=== PATIENT | female | born 1930 | race Caucasian/White ===

== ENCOUNTER 2018-01-06 03:39 | Inpatient (IN) | payer OTHER, MEDICARE ==
[~2018-01-06] VITALS: Ht 144.8 cm; Wt 78.9 kg
[~2018-01-06 03:39] MED LIST: ADVIL200 M2 PO; ASPIRIN EC81 M1 PO; BACTROBAN NASAL1 GM NASB; HYDROCHLOROTHIA25 M1 PO; TENORMIN50 M1 PO; VITAMIN D1000 UNIT PO; ZOCOR80 M1 PO
--- NOTE | 2018-01-06 09:47 | Admission Core Measures ---
Acute Coronary Syndrome (CM) ACS Core Measures Acute Coronary Syndrome Diagnosis No Congestive Heart Failure (NEW) CHF Core Measures Congestive Heart Failure Diagnosis No Cerebrovascular Accident (NEW) CVA Core Measures CVA/TIA Diagnosis No Venous Thromboembolism VTE Core Roge (View Protocol) VTE Risk Factors Surgery No Mechanical VTE Prophylaxis d/t N/A MechProphylax Ordered No VTE Pharm Prophylaxis d/t NA PharmProphylax ordered Problem List As ranked by this Provider includes Assessment & Plan 1. Unilateral primary osteoarthritis, left hip HOME MEDS Home Med List Aspirin (Ecotrin*) 81 MG TABLET.DR 1 TAB PO DAILY HEART/BLOOD (Reported) Atenolol (Tenormin) 50 MG TABLET 1 TAB PO BID BP (Reported) Cholecalciferol (Vitamin D3) (Vitamin D) 1,000 UNIT TABLET 1 TAB PO DAILY SUPPLEMENT (Reported) Hydrochlorothiazide 25 MG TABLET 1 TAB PO DAILY BP (Reported) Ibuprofen (Advil) 200 MG TABLET 3 TAB PO DAILY PRN PAIN (Reported) Mupirocin Calcium (Bactroban Nasal) 2 % OINT...G. 1 GM NASB TID POSITIVE NASAL SWAB (Reported) Simvastatin (SIMVASTATIN*) 80 MG TABLET 1 TAB PO QPM CHOLESTEROL (Reported)
[2018-01-06] MEDS ORDERED: ASPIRIN EC325 M2 PO (09:52)
[2018-01-06] MEDS ORDERED: DILAUDID2 M1 PO (09:52)
[2018-01-06] MEDS ORDERED: MIRALAX17 G1 PO (09:52)
[2018-01-06] MEDS ORDERED: COLACE100 M1 PO (09:52)
[2018-01-06] MEDS ORDERED: PRILOSEC OTC20 M1 PO (09:53)
--- NOTE | 2018-01-06 09:57 | Patient Discharge Instructions ---
Discharge Instructions General Discharge Information You were seen/treated for: Left hip pain related to unilateral primary osteoarthritis You had these procedures: Left total hip arthroplasty Watch for these problems: Increasing pain despite the use of pain medication Increasing redness, warmth or swelling Drainage of any type from incision Inability to bear weight on operative leg Persistent nausea and vomiting Fever greater than 101.5 degrees Do not soak the wound: Yes No bath, but you may shower: Yes Other wound care: Please keep wound clean and dry. No ointments or lotions of any type on or near incision at any time. No exceptions. Your dressing will be changed by your nurse on the second day after your surgery. Daily dry dressing changes are recommended each day thereafter. Do not soak your wound in a bath at any time until otherwise indicated by your surgeon. You may shower, please dry wound immediately after shower with a clean towel. Special Instructions: Aspirin: You are taking this medication to help prevent blood clot formation. Please take with food to protect your stomach lining. Please take as directed. Constipation: Pain medication can cause constipation. Dr. Lopez has recommended that you take Colace and miralax each day. You may discontinue this medication if you develop loose stool or diarrhea. If you wish to continue this medication, it is available over the counter. If you are unable to move your bowels after several days, if you are unable to pass gas and are developing bloating, nausea, or vomiting as a result, please contact your doctor. Diet Continue normal diet: Yes Recommended Diet: Regular Activity Full Activity/No Limits: No Activity Self Limited: Yes Pounds, do NOT lift more than: 10 Acute Coronary Syndrome Inclusion Criteria At DC or during hospital stay patient has or had the following: ACS DIAGNOSIS No Discharge Core Measures Meds if any: Prescribed or Continued at Discharge Meds if any: NOT Prescribed or Continued at Discharge Congestive Heart Failure Inclusion Criteria At DC or during hospital stay patient has or had the following: CHF DIAGNOSIS No Discharge Core Measures Meds if any: Prescribed or Continued at Discharge Meds if any: NOT Prescribed or Continued at Discharge Cerebrovascular accident Inclusion Criteria At DC or during hospital stay patient has or had the following: CVA/TIA Diagnosis No Discharge Core Measures Meds if any: Prescribed or Continued at Discharge Meds if any: NOT Prescribed or Continued at Discharge Venous thromboembolism Inclusion Criteria VTE Diagnosis No VTE Type NONE VTE Confirmed by (Test) NONE Discharge Core Measures - Per Current guidelines, there needs to be overlap - treatment for the first 5 days of Warfarin therapy. - If discharged on Warfarin prior to 5 days of - overlap therapy, the patient will need to be - assessed for post discharge needs including - *Post discharge parental anticoagulation - *Warfarin and/or parental anticoagulation education - *Follow up date to check INR post discharge At least 5 days overlap therapy as Inpatient No Meds if any: Prescribed or Continued at Discharge Note: Overlap Therapy is Warfarin and Anticoagulant Meds if any: NOT Prescribed or Continued at Discharge
--- NOTE | 2018-01-06 09:58 | Surgical Discharge Summary ---
Visit Information Visit Dates Admission Date: 01/06/18 Discharge Date: 01/09/18 History of Present Illness Chief Complaint: Left hip pain related to unilateral primary osteoarthritis Medical History Isolation History: Standard Surgical History Pertinent Surgical History: non-contributory Review of Systems: See H&P Hospital Course Course Attending Physician: Ananth Lopez MD Primary Care Physician: Freddie Lazar MD Hospital Course: Patient was admitted to the hospital for an elective total joint replacement. The procedure was tolerated well and patient was transferred to a general surgical floor. Diet was advanced and tolerated, and the patient voided spontaneously. The patient was evaluated and treated by physical therapy. At the time of hospital discharge, the vital signs were stable, neurovascular status was intact, and pain was controlled with the use of oral pain medications. Allergies: Coded Allergies: Cephalosporins (RASH 01/03/18) Sulfa (Sulfonamide Antibiotics) (RASH 01/03/18) amoxicillin (SWELLING, RASH, HIVES, WELTS 01/03/18) azithromycin (RASH 01/03/18) clindamycin (DIARRHEA 01/03/18) erythromycin base (RASH 01/03/18) latex (ITCH AND RASH 01/03/18) propoxyphene (From DARVON) (RASH 01/03/18) silver sulfadiazine (From SILVADENE) (RASH 01/03/18) Disposition Summary Disposition Principal Diagnosis: Left hip unilateral primary osteorathritis Additional Diagnosis: None Discharge Disposition: home health services Discharge Instructions General Discharge Information Code Status: Full Code Patient's Diet: Reg, advance as tolerated Patient's Activity: WBAT Follow-Up Instructions/Appts: Follow up with Dr. Lopez in 6 weeks from date of surgery. Please call his office to arrange and/or confirm this appointment. Medications at Discharge Discharge Medications: Stop taking the following medications: Aspirin (Ecotrin*) 81 MG TABLET.DR ORAL DAILY Ibuprofen (Advil) 200 MG TABLET ORAL DAILY as needed for PAIN Mupirocin Calcium (Bactroban Nasal) 2 % OINT...G. Both sides of nose THREE TIMES DAILY Continue taking these medications: Atenolol (Tenormin) 50 MG TABLET 1 Tablet ORAL TWICE DAILY Hydrochlorothiazide (Hydrochlorothiazide) 25 MG TABLET 1 Tablet ORAL DAILY Simvastatin (SIMVASTATIN*) 80 MG TABLET 1 Tablet ORAL Every night Cholecalciferol (Vitamin D3) (Vitamin D) 1,000 UNIT TABLET 1 Tablet ORAL DAILY Start taking the following new medications: Aspirin (Ecotrin*) 325 MG TABLET. 1 Tablet ORAL TWICE DAILY Qty = 60 No Refills Docusate Sodium (Colace) 100 MG CAPSULE 1 Capsule ORAL TWICE DAILY Qty = 14 No Refills Instructions: DISCONTINUE USE IF YOU DEVELOP LOOSE STOOL OR DIARRHEA Polyethylene Glycol 3350 (Miralax) 17 GRAM POWD.PACK 1 Packet ORAL DAILY Qty = 7 No Refills Instructions: dissolve in water, DISCONTINUE USE IF YOU DEVELOP LOOSE STOOL OR DIARRHEA Hydromorphone HCl (Dilaudid) 2 MG TABLET 1-2 Tablet ORAL EVERY 4-6 HOURS NEEDED as needed for PAIN Qty = 36 No Refills Omeprazole Magnesium (Prilosec Otc) 20 MG TABLET. 1 Tablet ORAL DAILY Qty = 30 No Refills
--- NOTE | 2018-01-06 10:30 | RADIOLOGY REPORT ---
EXAMINATION: XR HIP, LEFT CLINICAL INFORMATION: Status post left total hip replacement. COMPARISON: There are no prior studies for comparison. TECHNIQUE: Frontal and crosstable lateral views of the left hip. of the left hip. FINDINGS/IMPRESSION: A bipolar left hip prosthesis is present which is near-anatomic alignment. Tubing from a surgical drain in the operative region is noted.
[2018-01-06 12:00] VITALS: BP 154/70
--- NOTE | 2018-01-06 12:36 | Operative Report ---
Operative/Inv Procedure Report Surgery Date: 01/06/18 Name of Procedure: Right total hip replacement Pre-Operative Diagnosis: Primary right hip DJD Post-Operative Diagnosis: Same Estimated Blood Loss: 250 Surgeon/Music Adapter: John ABDI,Ananth Solomon Anesthesia: block Operative/Procedure Note Note: Description of Procedure: The patient was taken to the operating room and positively identified. After induction of spinal anesthesia and administration of appropriate pre-operative antibiotics, the patient was positioned supine on the operating room table and all bony prominences were well padded. After performing a surgical timeout, the right lower extremity was prepped and draped in the usual sterile fashion. A direct anterior approach was made to the right hip. The incision was carried sharply through superficial soft tissues to the level of the fascia. Meticulous hemostasis was maintained with Bovie electocautery. The fascia over the tensor fascia kristyn muscle was opened sharply and the interval between the TFL and the sartorius was entered bluntly taking care to stay lateral to the lateral femoral cutaneous nerve. Retractors were placed around the femoral neck and the pericapsular fat was identified. The ascending branches of the lateral femoral circumflex vessels were identified and carefully coagulated. The pericapsular fat and anterior capsule were then resected. A napkin ring osteotomy was performed and the femoral head was removed without difficulty. Attention was then turned to the acetabulum. After appropriate placement of retractors, the acetabulum was exposed. Soft tissue was cleaned from the acetabular margin and notch. Overhanging osteophytes were removed and the teardrop was exposed. The acetabulum was then sequentially reamed to accept a 52 mm Mani Tritanium hemispherical solid shell. This was impacted into place in the appropriate position and fitted with a 36 mm Trident X3 zero degree polyethylene insert. Attention was then turned to the femur. After performing the appropriate ligament releases, the proximal femur was exposed. It was then sequentially broached to accept a size 6 Mani Accolade II stem. This was trialed for leg length and stability. The trial component was removed and the final component was impacted into place. The trunnion was carefully cleaned and fit with a 36 mm, +0 Biolox delta ceramic femoral head. The hip was reduced and put through a full range of motion and found to be stable. The articular space was then irrigated with sterile saline. The periarticular soft tissues were infilitrated with Marcaine. The fascial layer was closed with interrupted #1 vicryl suture and the skin was re-approximated with interrupted 2 -0 vicryl. The skin was closed with a running 3-0 V-Lock suture. Steri-strips and a sterile dressing were applied. The patient was awakened and taken to the recovery room in satisfactory condition.
[2018-01-06 14:29] VITALS: BP 140/71
--- NOTE | 2018-01-06 14:48 | PN- Orthopedic ---
Subjective Subjective: poc s/p left justin w/hemovac drain sitting up in chair no major complaints at this time denies cp, sob, no n+v with diet Objective Vital Signs and I&Os Vital Signs Date Time Temp Pulse Resp B/P B/P Pulse O2 O2 Flow FiO2 Mean Ox Delivery Rate 01/06 1429 98.7 62 18 140/71 92 01/06 1247 95.8 01/06 1200 93.7 57 20 154/70 94 Room Air Intake & Output 01/06 1600 01/06 0801/06 0000 01/05 1600 01/05 0000 Intake Total Output Total Balance Patient 174 lb Weight Physical Exam: cv: rrr lungs; clear abd: soft, +bs ext: drsg dry, thigh soft bilat le distal cms intact hemovac drain with sanguinous drainage Assessment/Plan Assessment/Plan ortho stable plan dtv @1999 may be oob wbat left le ice to left hip titrate pain meds 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
[2018-01-06 20:24] VITALS: BP 110/58
[2018-01-06 22:17] VITALS: BP 120/60
[2018-01-07 02:09] VITALS: BP 110/60
[2018-01-07 06:00] VITALS: BP 120/60
[2018-01-07 09:03] LABS: ABSOLUTE BASOPHIL COUNT 0 /CUMM (0.0-0.2); ABSOLUTE EOSINOPHIL COUNT 0.2 /CUMM (0.0-0.7); ABSOLUTE GRANULOCYTE CT 7.8 /CUMM (1.4-6.5); ABSOLUTE LYMPH COUNT 0.7 /CUMM (1.2-3.4); ABSOLUTE MONOCYTE COUNT 0.9 /CUMM (0.10-0.60); BASOPHIL % 0.3 % (0.0-2.0); EOSINOPHIL % 2.1 % (0-5); GRANULOCYTE % 80.3 % (42.2-75.2); HEMATOCRIT 29.2 % (37-47); MEAN CORPUSCULAR HGB 30.1 PG (27.0-31.0); MEAN CORPUSCULAR VOLUME 91.2 FL (81.0-99.0); MEAN PLATELET VOLUME 9.2 FL (7.4-10.4); PLATELET COUNT 175 /CUMM (130-400); RBC DISTRIBUTION WIDTH 13.4 % (11.5-14.5); RED BLOOD CELL CT 3.21 /CUMM (4.20-5.40); WHITE BLOOD CELL COUNT 9.7 /CUMM (4.8-10.8)
[2018-01-07 10:10] VITALS: BP 118/60
--- NOTE | 2018-01-07 12:37 | PN- Orthopedic ---
Subjective Subjective: pt sitting in chair. tolerating reg diet. +flatus, no BM yet. ambulating with PT. pt was very concerned when she noticed some blood leaking down her leg that came from under the drain tubing, she was worried about infection. pain managed Objective Vital Signs and I&Os Vital Signs Date Time Temp Pulse Resp B/P B/P Pulse O2 O2 Flow FiO2 Mean Ox Delivery Rate 01/07 1017 60 118/60 01/07 1010 97.7 66 20 118/60 01/07 0600 98.2 68 18 120/60 95 08 0209 97.9 64 18 110/60 93 Room Air 01/06 2224 65 120/60 01/06 2217 97.6 65 18 120/60 92 Room Air 01/06 2024 97.5 65 18 110/58 94 Room Air 01/06 1429 97.3 62 18 140/71 92 01/06 1247 95.8 Intake & Output 01/07 1600 01/07 0800 01/07 0000 01/06 1600 01/06 0800 01/06 0000 Intake Total 720 840 350 Output Total 550 880 470 75 Balance -550 -160 370 275 Intake, IV 600 600 150 Intake, Oral 120 240 200 Output, 80 120 75 Drainage Output, Urine 550 800 350 Patient 174 lb Weight Weight Standing Scale Measurement Method Physical Exam: gen-NAD resp-clear cardio-RRR abd ND, soft, NT ext- left hip soft, appropriately tender. inferior aspect of dressing is stained with blood but not saturated. hemovac in place-50cc over last 5 hours distal sersory and motor function intact Results Last 48 Hours of Labs: Laboratory Tests 01/07 805 Chemistry Sodium (137 - 145 mmol/L) 135 L Potassium (3.5 - 5.1 mmol/L) 4.0 Chloride (98 - 107 mmol/L) 97 L Carbon Dioxide (22 - 30 mmol/L) 29 Anion Gap (5 - 16) 9 BUN (7 - 17 mg/dL) 26 H Creatinine (0.5 - 1.0 mg/dL) 0.7 Estimated GFR (>60 ml/min) > 60 BUN/Creatinine Ratio (7 - 25 %) 37.1 H Hematology CBC w Diff NO MAN DIFF REQ WBC (4.8 - 10.8 /CUMM) 9.7 RBC (4.20 - 5.40 /CUMM) 3.21 L Hgb (12.0 - 16.0 G/DL) 9.6 L Hct (37 - 47 %) 29.2 L MCV (81.0 - 99.0 FL) 91.2 MCH (27.0 - 31.0 PG) 30.1 MCHC (33.0 - 37.0 G/DL) 33.0 RDW (11.5 - 14.5 %) 13.4 Plt Count (130 - 400 /CUMM) 175 MPV (7.4 - 10.4 FL) 9.2 Gran % (42.2 - 75.2 %) 80.3 H Lymphocytes % (20.5 - 51.1 %) 7.6 L Monocytes % (1.7 - 9.3 %) 9.7 H Eosinophils % (0 - 5 %) 2.1 Basophils % (0.0 - 2.0 %) 0.3 Absolute Granulocytes (1.4 - 6.5 /CUMM) 7.8 H Absolute Lymphocytes (1.2 - 3.4 /CUMM) 0.7 L Absolute Monocytes (0.10 - 0.60 /CUMM) 0.9 H Absolute Eosinophils (0.0 - 0.7 /CUMM) 0.2 Absolute Basophils (0.0 - 0.2 /CUMM) 0 Assessment/Plan Assessment/Plan 87yo F SP Left JULIA POD1. Stable keep hemovav in place for now pain management DVT ppx-asa and ALPS reg diet WBAT physical therapy like;y DC tomorrow Core Measures Venous Thromboembolism VTE Risk Factors Surgery No Mechanical VTE Prophylaxis d/t N/A MechProphylax Ordered No VTE Pharm Prophylaxis d/t NA PharmProphylax ordered
[2018-01-07 14:56] VITALS: BP 120/63
[2018-01-07 22:06] VITALS: BP 118/60
[2018-01-08 06:52] VITALS: BP 110/62
--- NOTE | 2018-01-08 08:01 | PN- Orthopedic ---
Subjective Subjective: Patient states she was not able to do much therapy yesterday due to postoperative nausea (she believes this is med related) which have subsequently has resolved. She has mild to moderate pain in the left hip. She denies any fever or flulike illness. She has concerns about her ability to be discharged home today. Her drain has fallen out yesterday evening Objective Vital Signs and I&Os Vital Signs Date Time Temp Pulse Resp B/P B/P Pulse O2 O2 Flow FiO2 Mean Ox Delivery Rate 01/08 652 99.8 74 20 110/62 92 Room Air 01/07 2206 98.6 73 20 118/60 93 Room Air 01/07 2136 73 118/60 01/07 1456 98.5 65 18 120/63 96 01/07 1017 60 118/60 01/07 1010 97.7 66 20 118/60 Intake & Output 01/08 0800 01/08 0000 01/07 1600 01/07 0800 01/07 0000 01/06 1600 Intake Total 550 240 720 840 350 Output Total 750 880 470 75 Balance 550 -510 -160 370 275 Intake, IV 600 600 150 Intake, Oral 550 240 120 240 200 Number 3 Bowel Movements Output, 80 120 75 Drainage Output, Urine 750 800 350 Patient 174 lb Weight Weight Standing Scale Measurement Method Physical Exam: Well-developed well-nourished no apparent distress. HEENT: Atraumatic, extraocular motion intact Neck: Supple, no lymphadenopathy Respiratory: No respiratory distress Extremities: No edema left lower extremity hip dressing in place, Dressing with moderate thin/serous bloody drainage . Dressing changed, dry sterile dressing applied Incision without erythema Mild thigh swelling No signs of infection. No shortening or rotation Hip range of motion is limited and without unexpected pain Neurovascularly intact distally Bilateral calves are supple, nontender. Neuro: Alert and oriented x3 Psych: Mood affect normal, normal memory normal judgment. Skin: Warm and dry, no rash on exposed skin Results Last 48 Hours of Labs: Laboratory Tests 01/07 805 Chemistry Sodium (137 - 145 mmol/L) 135 L Potassium (3.5 - 5.1 mmol/L) 4.0 Chloride (98 - 107 mmol/L) 97 L Carbon Dioxide (22 - 30 mmol/L) 29 Anion Gap (5 - 16) 9 BUN (7 - 17 mg/dL) 26 H Creatinine (0.5 - 1.0 mg/dL) 0.7 Estimated GFR (>60 ml/min) > 60 BUN/Creatinine Ratio (7 - 25 %) 37.1 H Hematology CBC w Diff NO MAN DIFF REQ WBC (4.8 - 10.8 /CUMM) 9.7 RBC (4.20 - 5.40 /CUMM) 3.21 L Hgb (12.0 - 16.0 G/DL) 9.6 L Hct (37 - 47 %) 29.2 L MCV (81.0 - 99.0 FL) 91.2 MCH (27.0 - 31.0 PG) 30.1 MCHC (33.0 - 37.0 G/DL) 33.0 RDW (11.5 - 14.5 %) 13.4 Plt Count (130 - 400 /CUMM) 175 MPV (7.4 - 10.4 FL) 9.2 Gran % (42.2 - 75.2 %) 80.3 H Lymphocytes % (20.5 - 51.1 %) 7.6 L Monocytes % (1.7 - 9.3 %) 9.7 H Eosinophils % (0 - 5 %) 2.1 Basophils % (0.0 - 2.0 %) 0.3 Absolute Granulocytes (1.4 - 6.5 /CUMM) 7.8 H Absolute Lymphocytes (1.2 - 3.4 /CUMM) 0.7 L Absolute Monocytes (0.10 - 0.60 /CUMM) 0.9 H Absolute Eosinophils (0.0 - 0.7 /CUMM) 0.2 Absolute Basophils (0.0 - 0.2 /CUMM) 0 Assessment/Plan Assessment/Plan Postop day #2 status post left total hip arthroplasty anterior approach Pain medication as needed. Out of bed Physical therapy, weightbearing as tolerated Regular diet Aspirin for DVT prophylaxis (pt refusing) ALPS for DVT prophylaxis Regular home meds Dressing change daily Possible discharge home today depending upon how patient has with therapy. Core Measures Venous Thromboembolism VTE Risk Factors Surgery No Mechanical VTE Prophylaxis d/t N/A MechProphylax Ordered No VTE Pharm Prophylaxis d/t NA PharmProphylax ordered
[2018-01-08 09:27] LABS: ABSOLUTE BASOPHIL COUNT 0 /CUMM (0.0-0.2); ABSOLUTE EOSINOPHIL COUNT 0 /CUMM (0.0-0.7); ABSOLUTE GRANULOCYTE CT 12.7 /CUMM (1.4-6.5); ABSOLUTE LYMPH COUNT 1.2 /CUMM (1.2-3.4); ABSOLUTE MONOCYTE COUNT 1.1 /CUMM (0.10-0.60); BASOPHIL % 0.1 % (0.0-2.0); EOSINOPHIL % 0.2 % (0-5); GRANULOCYTE % 84.7 % (42.2-75.2); HEMATOCRIT 31.5 % (37-47); MEAN CORPUSCULAR HGB 30.2 PG (27.0-31.0); MEAN CORPUSCULAR HGB CONC 32.9 G/DL (33.0-37.0); MEAN CORPUSCULAR VOLUME 91.8 FL (81.0-99.0); MEAN PLATELET VOLUME 9.8 FL (7.4-10.4); PLATELET COUNT 144 /CUMM (130-400); RBC DISTRIBUTION WIDTH 13.5 % (11.5-14.5); RED BLOOD CELL CT 3.43 /CUMM (4.20-5.40)
[2018-01-08 10:24] LABS: WHITE BLOOD CELL COUNT 14.9 /CUMM (4.8-10.8)
[2018-01-08 14:04] VITALS: BP 100/60
--- NOTE | 2018-01-08 16:05 | RADIOLOGY REPORT ---
EXAMINATION: XR PORTABLE CHEST CLINICAL INFORMATION: Postop leukocytosis. Reported weakness. Presumptive diagnosis of atelectasis. Rule out infiltrate. COMPARISON: None TECHNIQUE: Portable AP semierect view of the chest was obtained. FINDINGS: The cardiac mediastinal silhouette is enlarged. Calcification and tortuosity of the aorta is seen. Low lung volumes are noted with bibasilar linear opacities, consistent with atelectasis, left greater than right. No dense consolidation or significant effusion or pneumothorax is seen. Bony structures are grossly unremarkable except for some degenerative changes in the shoulder joints. IMPRESSION: 1. Enlarged cardiomediastinal silhouette and ectatic aorta. 2. Low lung volumes with bibasilar subsegmental atelectasis, left greater than right. 3. No focal pneumonia.
[2018-01-08 22:00] VITALS: BP 106/60
[2018-01-09 06:29] VITALS: BP 142/74
--- NOTE | 2018-01-09 08:30 | PN- Orthopedic ---
Subjective Subjective: pod#3 s/p left justin no major issues overnight deneis cp, sob, no n+v with diet Objective Vital Signs and I&Os Vital Signs Date Time Temp Pulse Resp B/P B/P Pulse O2 O2 Flow FiO2 Mean Ox Delivery Rate / 06 98.4 76 18 142/74 92 Room Air 01/08 2200 99.6 71 20 106/60 92 01/08 2056 71 106/60 01/08 1955 Room Air Room Air 01/08 1404 98.7 70 16 100/60 98 01/08 1059 99.8 74 20 110/62 Intake & Output / 1600 01/09 0801/09 0000 01/08 1600 01/08 0800 01/08 0000 Intake Total 360 300 200 250 550 Output Total 500 201 550 Balance -140 99 -350 250 550 Intake, IV 160 10 Intake, Oral 360 140 200 240 550 Number 1 3 Bowel Movements Output, Stool 1 Output, Urine 500 200 550 Physical Exam: cv: rrr lungs; clear, denies, cough abd: soft, +bs ext: no calf tenderness bilat bloody drainage on dressing no evidence of cellulitis bilat distal cms intact Assessment/Plan Assessment/Plan ortho stable plan f/u am labs cont oob with pt probable d/c later today Core Measures Venous Thromboembolism VTE Risk Factors Surgery No Mechanical VTE Prophylaxis d/t N/A MechProphylax Ordered No VTE Pharm Prophylaxis d/t NA PharmProphylax ordered
[2018-01-09 09:11] VITALS: BP 120/60
[2018-01-09 09:34] LABS: ABSOLUTE BASOPHIL COUNT 0 /CUMM (0.0-0.2); ABSOLUTE EOSINOPHIL COUNT 0.1 /CUMM (0.0-0.7); ABSOLUTE MONOCYTE COUNT 1.2 /CUMM (0.10-0.60); BASOPHIL % 0.3 % (0.0-2.0); EOSINOPHIL % 0.6 % (0-5); GRANULOCYTE % 80.9 % (42.2-75.2); HEMATOCRIT 30.3 % (37-47); MEAN CORPUSCULAR HGB 29.5 PG (27.0-31.0); MEAN CORPUSCULAR HGB CONC 32.4 G/DL (33.0-37.0); MEAN CORPUSCULAR VOLUME 90.9 FL (81.0-99.0); MEAN PLATELET VOLUME 9.4 FL (7.4-10.4); PLATELET COUNT 201 /CUMM (130-400); RBC DISTRIBUTION WIDTH 13.7 % (11.5-14.5); RED BLOOD CELL CT 3.33 /CUMM (4.20-5.40); WHITE BLOOD CELL COUNT 12.4 /CUMM (4.8-10.8)
== END 2018-01-09 11:51 | disposition home health service (06) | DRG 470 ==
LOC: SDA 03:39 → ENRESERV 10:11 → 2NA 11:47 → ENPENDDIS 01-09 08:31 → ENTRNSPT 01-09 11:35 → EDTRNSPTSTS 01-09 11:38 → EDTRNSPT 01-09 11:38 → 2NA 01-09 11:51 → CMPTRNSPT 01-09 12:02
PROVIDERS: Nurse Practitioner; Physician Assistant; Physician Assistant Surgical
PROC: 0SRB04A Replacement of Left Hip Joint with Ceramic on Polyethylene Synthetic Substitute, Uncemented, Open Approach (ICD-10-PCS; principal; 2018-01-06)
DX: M16.12 Unilateral primary osteoarthritis, left hip (principal); I45.10 Unspecified right bundle-branch block; E78.00 Pure hypercholesterolemia, unspecified; I10 Essential (primary) hypertension; M81.0 Age-related osteoporosis without current pathological fracture; M54.5 Low back pain; M25.752 Osteophyte, left hip
CPT/HCPCS: 2NAP; 36415; 71045; 73502-LT; 81001; 82436; 97110-GO; 97116-GO; 97161-GP; 97530-GO; J0131; J0690; J0735; J2405; J2550; J3370; J3490; J7042; J7060